=== PATIENT | female | born 1965 | race Caucasian/White ===

== ENCOUNTER 2017-10-16 09:37 | Inpatient (IN) | payer MEDICAID, MEDICARE ==
[~2017-10-16] VITALS: Ht 152.4 cm; Wt 63.9 kg
[2017-10-16 10:05] VITALS: BP 112/77
[2017-10-16] MEDS ORDERED: LORazepam 2 MG TABLET PO PRN (10:30)
[2017-10-16] MEDS ORDERED: ZOLPIDEM TARTRATE 10 MG TABLET PO PRN (10:30)
[2017-10-16] MEDS ORDERED: HALOPERIDOL 5 MG TABLET PO PRN (10:30)
[2017-10-16] MEDS ORDERED: INFLUENZA VIRUS VACCINE QVS 2017-18 (3YR+)/PF 60 MCG/0.5 ML SYRINGE IM ONE (12:15)
[2017-10-16 13:57] VITALS: BP 111/69
[2017-10-16] MEDS ORDERED: ACETAMINOPHEN 325 MG TABLET PO PRN (14:30)
[2017-10-16] MEDS ORDERED: IBUPROFEN 600 MG TABLET PO PRN (14:30)
[2017-10-16] MEDS ORDERED: MAGNESIUM CITRATE 300 ML ORAL SOLUTION PO PRN (15:00)
[2017-10-16] MEDS ORDERED: MAGNESIUM HYDROXIDE SUSPENSION 30 ML UDCUP PO PRN (15:00)
[2017-10-16] MEDS: DOCUSATE SODIUM 250 MG CAPSULE PO SCH (16:15)
[2017-10-16] MEDS: NYSTATIN 15 GM POWDER BOTTLE TP SCH (16:15)
[2017-10-16] MEDS: BACITRACIN 28.4 GM OINTMENT TP SCH (16:26)
[2017-10-16 16:34] VITALS: BP 103/64
[2017-10-17 00:44] VITALS: BP 102/59
[2017-10-17 08:20] LABS: BASOPHILS % (AUTO) 0.3 % (0.0-2.0); EOSINOPHILS % (AUTO) 3.2 % (1.0-6.0); HEMATOCRIT 36.3 % (36-46); HEMOGLOBIN 12.7 g/dL (12.0-16.0); LYMPHOCYTES # (AUTO) 1.5 K/uL (1.0-4.8); LYMPHOCYTES % (AUTO) 28.8 % (22.0-44.0); MEAN CORPUSCULAR HEMOGLOBIN 33.4 pg (26.0-34.0); MEAN CORPUSCULAR HGB CONC 35.1 G/dL (31.0-37.0); MEAN CORPUSCULAR VOLUME 95 fL (80-100); MONOCYTES # (AUTO) 0.3 K/uL (0.1-1.0); MONOCYTES % (AUTO) 5.7 % (2.0-9.0); NEUTROPHILS # (AUTO) 3.2 K/uL (1.8-7.7); PLATELET COUNT (AUTO) 308 K/uL (150-450); RED BLOOD CELL COUNT(AUTO) 3.81 MIL/uL (4.00-5.20); RED CELL DISTRIBUTION WIDTH 13.5 % (11.5-14.5)
[2017-10-17 08:29] LABS: HEMOGLOBIN A1C 4.6 % (4.5-6.2)
[2017-10-17 08:40] VITALS: BP 106/61
[2017-10-17 09:00] LABS: ALANINE AMINOTRANSFERASE 17 U/L (12-78); ALBUMIN 3.4 g/dL (3.4-5.0); ALKALINE PHOSPHATASE 78 U/L (46-116); ANION GAP 7 mmol/L (8-16); ASPARTATE AMINOTRANSFERASE 17 U/L (15-37); BILIRUBIN,TOTAL 0.3 mg/dL (0.1-1.0); CALCIUM, TOTAL 8.7 mg/dL (8.8-10.5); CARBON DIOXIDE 27 mmol/L (22-29); CHLORIDE 107 mmol/L (98-107); CHOL/HDL RATIO 3.2 (3.9-5.7); CHOLESTEROL 150 mg/dL (131-200); CREATININE 0.67 mg/dL (0.60-1.30); FREE T4 (FREE THYROXINE) 0.92 ng/dL (0.76-1.46); GLOMERULAR FILTR. RATE CALC > 60 mL/min (>60); GLUCOSE,RANDOM 90 mg/dL (70-110); HDL CHOLESTEROL 47 mg/dL (40-60); LDL CHOL (CALC.) 95 mg/dL (0-130); POTASSIUM 4.5 mmol/L (3.5-5.1); SODIUM SERUM 141 mmol/L (136-145); THYROID STIMULATING HORMONE 0.36 uIU/mL (0.36-3.74); TOTAL PROTEIN, SERUM 6.5 g/dL (6.4-8.2); TRIGLYCERIDES 40 mg/dL (15-150); UREA NITROGEN, BLOOD 17 mg/dL (7-18)
[2017-10-17] MEDS: NYSTATIN 15 GM POWDER BOTTLE TP SCH (09:21)
[2017-10-17] MEDS: BACITRACIN 28.4 GM OINTMENT TP SCH ×2 (09:21→16:13)
[2017-10-17] MEDS: DOCUSATE SODIUM 250 MG CAPSULE PO SCH (09:21)
[2017-10-17 09:45] LABS: AMPHET/METH SCREEN,URINE NEGATIVE (NEGATIVE); BARBITURATE SCREEN, URINE NEGATIVE (NEGATIVE); BENZODIAZEPINES SCREEN,URINE NEGATIVE (NEGATIVE); CANNABINOID SCREEN,URINE NEGATIVE (NEGATIVE); COCAINE SCREEN,URINE NEGATIVE (NEGATIVE); METHADONE SCREEN, URINE NEGATIVE (NEGATIVE); OPIATE SCREEN,URINE NEGATIVE (NEGATIVE)
[2017-10-17 09:46] LABS: PHENCYCLIDINE SCREEN,URINE NEGATIVE (NEGATIVE)
[2017-10-17] MEDS: OLANZapine 5 MG TABLET PO SCH (10:00)
[2017-10-17] MEDS: PARoxetine HCL 20 MG TABLET PO SCH (10:00)
[2017-10-17 10:09] LABS: BILIRUBIN,URINE NEGATIVE (NEGATIVE); GLUCOSE, URINE (UA) NEGATIVE (NEGATIVE); KETONES,URINE NEGATIVE (NEGATIVE); LEUKOCYTE ESTERASE ,URINE NEGATIVE (NEGATIVE); NITRATE,URINE NEGATIVE (NEGATIVE); OCCULT BLOOD,URINE NEGATIVE (NEGATIVE); PH,URINE 6.5 (5.0-8.0); PROTEIN,URINE NEGATIVE (NEGATIVE)
[2017-10-17 11:54] LABS: APPEARANCE,URINE CLEAR (CLEAR)
[2017-10-17 16:21] VITALS: BP 103/60
[2017-10-18 07:06] VITALS: BP 110/77
[2017-10-18 08:03] VITALS: BP 108/68
[2017-10-18] MEDS: PARoxetine HCL 20 MG TABLET PO SCH (09:01)
[2017-10-18] MEDS: DOCUSATE SODIUM 250 MG CAPSULE PO SCH (09:01)
[2017-10-18] MEDS: OLANZapine 5 MG TABLET PO SCH (09:01)
[2017-10-18] MEDS: NYSTATIN 15 GM POWDER BOTTLE TP SCH (09:02)
[2017-10-18] MEDS: BACITRACIN 28.4 GM OINTMENT TP SCH ×2 (09:02→16:14)
[2017-10-18 16:08] VITALS: BP 106/63
[2017-10-19 05:54] VITALS: BP 105/74
[2017-10-19] MEDS: DOCUSATE SODIUM 250 MG CAPSULE PO SCH (08:13)
[2017-10-19] MEDS: OLANZapine 5 MG TABLET PO SCH (08:14)
[2017-10-19] MEDS: NYSTATIN 15 GM POWDER BOTTLE TP SCH (08:14)
[2017-10-19] MEDS: PARoxetine HCL 20 MG TABLET PO SCH (08:14)
[2017-10-19] MEDS: BACITRACIN 28.4 GM OINTMENT TP SCH ×2 (08:14→16:26)
[2017-10-19 08:25] VITALS: BP 109/67
[2017-10-19 16:39] VITALS: BP 97/58
[2017-10-19 17:00] VITALS: BP 103/64
[2017-10-20 00:17] VITALS: BP 101/67
[2017-10-20 08:28] VITALS: BP 101/60
[2017-10-20] MEDS: PARoxetine HCL 20 MG TABLET PO SCH (08:58)
[2017-10-20] MEDS: OLANZapine 5 MG TABLET PO SCH (08:59)
[2017-10-20] MEDS: NYSTATIN 15 GM POWDER BOTTLE TP SCH (08:59)
[2017-10-20] MEDS: BACITRACIN 28.4 GM OINTMENT TP SCH ×2 (08:59→17:20)
[2017-10-20] MEDS: DOCUSATE SODIUM 250 MG CAPSULE PO SCH (08:59)
[2017-10-20 16:15] VITALS: BP 105/67
[2017-10-21 00:40] VITALS: BP 103/60
[2017-10-21 08:31] VITALS: BP 106/52
[2017-10-21] MEDS: BACITRACIN 28.4 GM OINTMENT TP SCH ×2 (09:48→16:57)
[2017-10-21] MEDS: DOCUSATE SODIUM 250 MG CAPSULE PO SCH (09:48)
[2017-10-21] MEDS: OLANZapine 5 MG TABLET PO SCH (09:48)
[2017-10-21] MEDS: PARoxetine HCL 20 MG TABLET PO SCH (09:48)
[2017-10-21] MEDS: NYSTATIN 15 GM POWDER BOTTLE TP SCH (09:48)
[2017-10-21 16:39] VITALS: BP 119/71
[2017-10-22 06:04] VITALS: BP 116/70
[2017-10-22 08:35] VITALS: BP 115/68
[2017-10-22] MEDS: NYSTATIN 15 GM POWDER BOTTLE TP SCH (08:38)
[2017-10-22] MEDS: OLANZapine 5 MG TABLET PO SCH (08:38)
[2017-10-22] MEDS: BACITRACIN 28.4 GM OINTMENT TP SCH ×2 (08:38→16:44)
[2017-10-22] MEDS: DOCUSATE SODIUM 250 MG CAPSULE PO SCH (08:38)
[2017-10-22] MEDS: PARoxetine HCL 20 MG TABLET PO SCH (08:38)
[2017-10-22 16:00] VITALS: BP 106/63
[2017-10-23 06:19] VITALS: BP 107/69
[2017-10-23 08:19] VITALS: BP 117/67
[2017-10-23] MEDS: DOCUSATE SODIUM 250 MG CAPSULE PO SCH (09:00)
[2017-10-23] MEDS: OLANZapine 5 MG TABLET PO SCH (09:00)
[2017-10-23] MEDS: PARoxetine HCL 20 MG TABLET PO SCH (09:00)
[2017-10-23] MEDS: NYSTATIN 15 GM POWDER BOTTLE TP SCH (09:01)
[2017-10-23] MEDS: BACITRACIN 28.4 GM OINTMENT TP SCH ×2 (09:01→16:33)
[2017-10-23 15:39] VITALS: BP 117/68
[2017-10-23 16:00] VITALS: BP 117/68
[2017-10-24 02:18] VITALS: BP 101/68
[2017-10-24 08:42] VITALS: BP 112/73
[2017-10-24] MEDS: PARoxetine HCL 20 MG TABLET PO SCH (09:06)
[2017-10-24] MEDS: BACITRACIN 28.4 GM OINTMENT TP SCH ×2 (09:07→16:04)
[2017-10-24] MEDS: NYSTATIN 15 GM POWDER BOTTLE TP SCH (09:07)
[2017-10-24] MEDS: DOCUSATE SODIUM 250 MG CAPSULE PO SCH (09:07)
[2017-10-24] MEDS: OLANZapine 5 MG TABLET PO SCH (09:07)
[2017-10-24] MEDS ORDERED: OLAN5TAB2 PO (09:44)
[2017-10-24] MEDS ORDERED: PARO20TA24 PO (09:44)
[2017-10-24] MEDS ORDERED: DOCU250C91 PO (09:45)
[2017-10-24 16:36] VITALS: BP 111/63
== END 2017-10-24 16:00 | disposition home or self-care (01) | DRG 750 ==
LOC: B2S 10:22
PROVIDERS: ADMIT Psychiatry & Neurology Child & Adolescent Psychiatry; ATTEND Psychiatry & Neurology Child & Adolescent Psychiatry
DX: F25.0 Schizoaffective disorder, bipolar type (principal); F29 Unspecified psychosis not due to a substance or known physiological condition; R45.851 Suicidal ideations; K59.00 Constipation, unspecified; S30.810A Abrasion of lower back and pelvis, initial encounter; X58.XXXA Exposure to other specified factors, initial encounter; Y93.89 Activity, other specified; Y92.89 Other specified places as the place of occurrence of the external cause; Y99.8 Other external cause status; Z28.21 Immunization not carried out because of patient refusal
CPT/HCPCS: 80307; 83036; 84439; 84443

== ENCOUNTER 2017-12-02 20:05 | Inpatient (IN) | payer MEDICAID ==
[~2017-12-02] VITALS: Ht 157.5 cm; Wt 67.1 kg
[~2017-12-02 20:05] MED LIST: DOCU250C91 PO; OLAN5TAB2 PO; PARO20TA24 PO
[2017-12-02] MEDS ORDERED: HALOPERIDOL 5 MG TABLET PO PRN (23:15)
[2017-12-02] MEDS ORDERED: LORazepam 2 MG TABLET PO PRN (23:15)
[2017-12-02 23:28] VITALS: BP 111/66
[2017-12-03 00:33] VITALS: BP 114/62
[2017-12-03] MEDS ORDERED: INFLUENZA VIRUS VACCINE QVS 2017-18 (3YR+)/PF 60 MCG/0.5 ML SYRINGE IM ONE (00:45)
[2017-12-03] MEDS ORDERED: PNEUMOCOCCAL VACCINE POLYVALENT 0.5 ML VIAL [PPSV23] IM ONE (00:45)
[2017-12-03 08:08] VITALS: BP 118/66
[2017-12-03] MEDS: PARoxetine HCL 20 MG TABLET PO SCH (08:21)
[2017-12-03 08:24] LABS: AMPHET/METH SCREEN,URINE NEGATIVE (NEGATIVE); BARBITURATE SCREEN, URINE NEGATIVE (NEGATIVE); BENZODIAZEPINES SCREEN,URINE NEGATIVE (NEGATIVE); CANNABINOID SCREEN,URINE NEGATIVE (NEGATIVE); COCAINE SCREEN,URINE NEGATIVE (NEGATIVE); METHADONE SCREEN, URINE NEGATIVE (NEGATIVE); OPIATE SCREEN,URINE NEGATIVE (NEGATIVE)
[2017-12-03 08:25] LABS: PHENCYCLIDINE SCREEN,URINE NEGATIVE (NEGATIVE)
[2017-12-03 08:47] LABS: APPEARANCE,URINE CLEAR (CLEAR); BILIRUBIN,URINE NEGATIVE (NEGATIVE); GLUCOSE, URINE (UA) NEGATIVE (NEGATIVE); KETONES,URINE NEGATIVE (NEGATIVE); LEUKOCYTE ESTERASE ,URINE SMALL (NEGATIVE); NITRATE,URINE NEGATIVE (NEGATIVE); OCCULT BLOOD,URINE NEGATIVE (NEGATIVE); PH,URINE 5.5 (5.0-8.0); PROTEIN,URINE NEGATIVE (NEGATIVE); UROBILINOGEN,URINE 0.2 mg/dL (<=1.0)
[2017-12-03] MEDS ORDERED: OLANZapine 5 MG TABLET PO SCH (09:00)
[2017-12-03 09:11] LABS: RBC,URINE 0-2 /HPF (0-2)
[2017-12-03 09:12] LABS: BACTERIA,URINE Rare /HPF (None Seen); SQUAMOUS EPITHELIAL CELL,UR Few /LPF (None Seen); WBC,URINE 26-50 /HPF (0-5)
[2017-12-03 09:13] LABS: RENAL EPITHELIAL CELLS,URINE Few /LPF (None Seen)
[2017-12-03 16:00] VITALS: BP 105/64
[2017-12-03] MEDS: OLANZapine 5 MG TABLET PO SCH (20:16)
[2017-12-04 07:08] VITALS: BP 121/74
[2017-12-04 08:08] VITALS: BP 104/65
[2017-12-04 08:20] LABS: BASOPHILS % (AUTO) 0.3 % (0.0-2.0); EOSINOPHILS % (AUTO) 4.6 % (1.0-6.0); HEMATOCRIT 40.8 % (36-46); LYMPHOCYTES # (AUTO) 1.6 K/uL (1.0-4.8); LYMPHOCYTES % (AUTO) 25.9 % (22.0-44.0); MEAN CORPUSCULAR HEMOGLOBIN 32.3 pg (26.0-34.0); MEAN CORPUSCULAR HGB CONC 34.4 G/dL (31.0-37.0); MEAN CORPUSCULAR VOLUME 94 fL (80-100); MONOCYTES # (AUTO) 0.4 K/uL (0.1-1.0); MONOCYTES % (AUTO) 7.3 % (2.0-9.0); NEUTROPHILS # (AUTO) 3.8 K/uL (1.8-7.7); NEUTROPHILS % (AUTO) 61.9 % (40.0-70.0); PLATELET COUNT (AUTO) 315 K/uL (150-450); RED BLOOD CELL COUNT(AUTO) 4.35 MIL/uL (4.00-5.20); RED CELL DISTRIBUTION WIDTH 14.1 % (11.5-14.5)
[2017-12-04] MEDS: PARoxetine HCL 20 MG TABLET PO SCH (08:22)
[2017-12-04 08:41] LABS: HEMOGLOBIN A1C 5.3 % (4.5-6.2)
[2017-12-04 09:40] LABS: ALANINE AMINOTRANSFERASE 24 U/L (12-78); ALBUMIN 3.4 g/dL (3.4-5.0); ALKALINE PHOSPHATASE 96 U/L (46-116); ANION GAP 11 mmol/L (8-16); ASPARTATE AMINOTRANSFERASE 20 U/L (15-37); BILIRUBIN,TOTAL 0.2 mg/dL (0.1-1.0); CALCIUM, TOTAL 8.9 mg/dL (8.8-10.5); CARBON DIOXIDE 23 mmol/L (22-29); CHLORIDE 105 mmol/L (98-107); CHOL/HDL RATIO 3.6 (3.9-5.7); CHOLESTEROL 177 mg/dL (131-200); CREATININE 0.62 mg/dL (0.60-1.30); FREE T4 (FREE THYROXINE) 0.88 ng/dL (0.76-1.46); GLOMERULAR FILTR. RATE CALC > 60 mL/min (>60); GLUCOSE,RANDOM 86 mg/dL (70-110); HDL CHOLESTEROL 49 mg/dL (40-60); LDL CHOL (CALC.) 112 mg/dL (0-130); POTASSIUM 4.1 mmol/L (3.5-5.1); SODIUM SERUM 139 mmol/L (136-145); THYROID STIMULATING HORMONE 0.67 uIU/mL (0.36-3.74); TOTAL PROTEIN, SERUM 7.2 g/dL (6.4-8.2); TRIGLYCERIDES 81 mg/dL (15-150); UREA NITROGEN, BLOOD 21 mg/dL (7-18)
[2017-12-04 16:07] VITALS: BP 108/71
[2017-12-04] MEDS: OLANZapine 5 MG TABLET PO SCH (20:10)
[2017-12-05 05:12] VITALS: BP 102/65
[2017-12-05 08:39] VITALS: BP 101/64
[2017-12-05] MEDS: PARoxetine HCL 20 MG TABLET PO SCH (08:44)
[2017-12-05] MEDS ORDERED: MAG HYDROX/AL HYDROX/SIMETH ES 30 ML SUSPENSION UDCUP PO PRN (14:30)
[2017-12-05 16:03] VITALS: BP 112/65
[2017-12-05] MEDS: OLANZapine 5 MG TABLET PO SCH (20:01)
[2017-12-06 06:22] VITALS: BP 110/68
[2017-12-06 08:22] VITALS: BP 100/60
[2017-12-06] MEDS: PARoxetine HCL 20 MG TABLET PO SCH (08:32)
[2017-12-06 16:06] VITALS: BP 101/67
[2017-12-06] MEDS: OLANZapine 10 MG TABLET PO SCH (20:05)
[2017-12-07 01:04] VITALS: BP 100/68
[2017-12-07 08:19] VITALS: BP 112/72
[2017-12-07] MEDS: PARoxetine HCL 20 MG TABLET PO SCH (08:23)
[2017-12-07 16:08] VITALS: BP 111/68
[2017-12-07] MEDS: OLANZapine 10 MG TABLET PO SCH (20:04)
[2017-12-08 01:19] VITALS: BP 110/62
[2017-12-08 08:11] VITALS: BP 100/60
[2017-12-08] MEDS: PARoxetine HCL 20 MG TABLET PO SCH (08:15)
[2017-12-08] MEDS: NITROFURANTOIN/NITROFURAN MAC 100 MG CAPSULE [MACROBID] PO SCH ×2 (08:15→16:12)
[2017-12-08 16:24] VITALS: BP 122/68
[2017-12-08] MEDS: OLANZapine 10 MG TABLET PO SCH (20:21)
[2017-12-08] MEDS: ZOLPIDEM TARTRATE 10 MG TABLET PO PRN (20:21)
[2017-12-09 01:00] VITALS: BP 122/67
[2017-12-09 08:20] VITALS: BP 100/66
[2017-12-09] MEDS: PARoxetine HCL 20 MG TABLET PO SCH (08:26)
[2017-12-09] MEDS: NITROFURANTOIN/NITROFURAN MAC 100 MG CAPSULE [MACROBID] PO SCH ×2 (08:26→16:30)
[2017-12-09 16:46] VITALS: BP 104/69
[2017-12-09] MEDS: OLANZapine 10 MG TABLET PO SCH (20:10)
[2017-12-09] MEDS: ZOLPIDEM TARTRATE 10 MG TABLET PO PRN (20:37)
[2017-12-10 05:56] VITALS: BP 120/81
[2017-12-10] MEDS: NITROFURANTOIN/NITROFURAN MAC 100 MG CAPSULE [MACROBID] PO SCH ×2 (08:57→16:14)
[2017-12-10] MEDS: PARoxetine HCL 20 MG TABLET PO SCH (08:59)
[2017-12-10 16:32] VITALS: BP 119/70
[2017-12-10] MEDS: OLANZapine 7.5 MG TABLET PO SCH (20:18)
[2017-12-10] MEDS: ZOLPIDEM TARTRATE 10 MG TABLET PO PRN (21:46)
[2017-12-11 01:12] VITALS: BP 102/65
[2017-12-11 08:29] VITALS: BP 101/67
[2017-12-11] MEDS: PARoxetine HCL 20 MG TABLET PO SCH (09:25)
[2017-12-11 16:06] VITALS: BP 115/67
[2017-12-11] MEDS: OLANZapine 7.5 MG TABLET PO SCH (20:17)
[2017-12-11] MEDS: ZOLPIDEM TARTRATE 10 MG TABLET PO PRN (20:27)
[2017-12-12 00:59] VITALS: BP 101/67
[2017-12-12 08:12] VITALS: BP 114/67
[2017-12-12] MEDS: PARoxetine HCL 20 MG TABLET PO SCH (08:56)
[2017-12-12 08:57] LABS: APPEARANCE,URINE CLEAR (CLEAR); BILIRUBIN,URINE NEGATIVE (NEGATIVE); GLUCOSE, URINE (UA) NEGATIVE (NEGATIVE); KETONES,URINE NEGATIVE (NEGATIVE); LEUKOCYTE ESTERASE ,URINE NEGATIVE (NEGATIVE); NITRATE,URINE NEGATIVE (NEGATIVE); OCCULT BLOOD,URINE NEGATIVE (NEGATIVE); PROTEIN,URINE NEGATIVE (NEGATIVE)
[2017-12-12] MEDS ORDERED: OLAN7.5T2 PO ×2 (12:19→12:22)
[2017-12-12] MEDS ORDERED: PARO20TA24 PO (12:19)
== END 2017-12-12 15:00 | disposition home or self-care (01) | DRG 750 ==
LOC: B2S 20:45 → EDSTATUS 23:44
PROC: 3E0234Z Introduction of Serum, Toxoid and Vaccine into Muscle, Percutaneous Approach (ICD-10-PCS; principal; 2017-12-03)
DX: F25.1 Schizoaffective disorder, depressive type (principal); R45.851 Suicidal ideations; F17.210 Nicotine dependence, cigarettes, uncomplicated; K59.00 Constipation, unspecified; Z79.899 Other long term (current) drug therapy; Z23 Encounter for immunization
CPT/HCPCS: 83036; 84439; 84443; 87086; 90471

== ENCOUNTER 2018-02-20 16:35 | Inpatient (IN) | payer MEDICAID ==
[~2018-02-20] VITALS: Ht 157.5 cm; Wt 68.0 kg
[~2018-02-20 16:35] MED LIST changes: -DOCU250C91 PO; -OLAN5TAB2 PO; +OLAN7.5T2 PO
[2018-02-20 21:16] VITALS: BP 120/89
[2018-02-20] MEDS ORDERED: ZOLPIDEM TARTRATE 10 MG TABLET PO PRN (21:30)
[2018-02-20] MEDS ORDERED: LORazepam 2 MG TABLET PO PRN (21:30)
[2018-02-20] MEDS ORDERED: HALOPERIDOL 5 MG TABLET PO PRN (21:30)
[2018-02-20 21:59] VITALS: BP 111/72
[2018-02-21 01:06] VITALS: BP 100/60
[2018-02-21 08:09] VITALS: BP 115/71
[2018-02-21] MEDS ORDERED: ACETAMINOPHEN 325 MG TABLET PO PRN (08:45)
[2018-02-21 08:54] LABS: BASOPHILS % (AUTO) 0.6 % (0.0-2.0); HEMATOCRIT 38.9 % (36-46); HEMOGLOBIN 13.4 g/dL (12.0-16.0); LYMPHOCYTES # (AUTO) 1.8 K/uL (1.0-4.8); LYMPHOCYTES % (AUTO) 37.1 % (22.0-44.0); MEAN CORPUSCULAR HEMOGLOBIN 31.9 pg (26.0-34.0); MEAN CORPUSCULAR HGB CONC 34.4 G/dL (31.0-37.0); MEAN CORPUSCULAR VOLUME 93 fL (80-100); MONOCYTES # (AUTO) 0.4 K/uL (0.1-1.0); MONOCYTES % (AUTO) 7.1 % (2.0-9.0); NEUTROPHILS # (AUTO) 2.6 K/uL (1.8-7.7); NEUTROPHILS % (AUTO) 52.2 % (40.0-70.0); PLATELET COUNT (AUTO) 295 K/uL (150-450); RED BLOOD CELL COUNT(AUTO) 4.19 MIL/uL (4.00-5.20); RED CELL DISTRIBUTION WIDTH 13.8 % (11.5-14.5)
[2018-02-21] MEDS: FLUOCINONIDE 0.05% TP SCH ×2 (09:00→16:58)
[2018-02-21 09:34] LABS: ALANINE AMINOTRANSFERASE 16 U/L (12-78); ALBUMIN 3.4 g/dL (3.4-5.0); ALKALINE PHOSPHATASE 73 U/L (46-116); ANION GAP 5 mmol/L (8-16); ASPARTATE AMINOTRANSFERASE 16 U/L (15-37); BILIRUBIN,TOTAL 0.3 mg/dL (0.1-1.0); CALCIUM, TOTAL 8.8 mg/dL (8.8-10.5); CARBON DIOXIDE 29 mmol/L (22-29); CHLORIDE 107 mmol/L (98-107); CHOL/HDL RATIO 2.7 (3.9-5.7); CHOLESTEROL 122 mg/dL (131-200); CREATININE 0.66 mg/dL (0.60-1.30); FREE T4 (FREE THYROXINE) 1.08 ng/dL (0.76-1.46); GLOMERULAR FILTR. RATE CALC > 60 mL/min (>60); GLUCOSE,RANDOM 86 mg/dL (70-110); HDL CHOLESTEROL 45 mg/dL (40-60); LDL CHOL (CALC.) 68 mg/dL (0-130); POTASSIUM 4.1 mmol/L (3.5-5.1); SODIUM SERUM 141 mmol/L (136-145); THYROID STIMULATING HORMONE 1.05 uIU/mL (0.36-3.74); TOTAL PROTEIN, SERUM 6.9 g/dL (6.4-8.2); TRIGLYCERIDES 47 mg/dL (15-150); UREA NITROGEN, BLOOD 11 mg/dL (7-18)
[2018-02-21] MEDS: IBUPROFEN 400 MG TABLET PO PRN (09:49)
[2018-02-21] MEDS: ARIPiprazole 10 MG TABLET PO SCH (13:14)
[2018-02-21 16:00] VITALS: BP 100/60
[2018-02-22] VITALS: BP 102/61
[2018-02-22] MEDS: FLUOCINONIDE 0.05% TP SCH ×2 (08:04→16:56)
[2018-02-22] MEDS: ARIPiprazole 10 MG TABLET PO SCH (08:04)
[2018-02-22] MEDS ORDERED: DOCUSATE SODIUM 100 MG CAPSULE PO PRN (08:30)
[2018-02-22 08:43] LABS: THYROID STIMULATING HORMONE 0.49 uIU/mL (0.36-3.74)
[2018-02-22 10:51] VITALS: BP 94/56
[2018-02-22 16:00] VITALS: BP 106/64
[2018-02-23 02:16] VITALS: BP 106/64
[2018-02-23] MEDS: FLUOCINONIDE 0.05% TP SCH ×2 (08:15→16:45)
[2018-02-23] MEDS: ARIPiprazole 10 MG TABLET PO SCH (08:15)
[2018-02-23 08:48] VITALS: BP 108/72
[2018-02-23 16:39] VITALS: BP 114/80
[2018-02-24 06:28] VITALS: BP 109/76
[2018-02-24 08:29] VITALS: BP 112/73
[2018-02-24] MEDS: ARIPiprazole 10 MG TABLET PO SCH (08:32)
[2018-02-24] MEDS: FLUOCINONIDE 0.05% TP SCH ×2 (08:33→17:05)
[2018-02-24 16:16] VITALS: BP 113/71
[2018-02-24] MEDS: IBUPROFEN 400 MG TABLET PO PRN (18:56)
[2018-02-25 05:33] VITALS: BP 120/63
[2018-02-25 08:02] VITALS: BP 108/62
[2018-02-25] MEDS: FLUOCINONIDE 0.05% TP SCH ×2 (08:15→16:04)
[2018-02-25] MEDS: ARIPiprazole 10 MG TABLET PO SCH (08:15)
[2018-02-25 16:04] VITALS: BP 101/62
[2018-02-26 06:13] VITALS: BP 110/54
[2018-02-26 08:02] VITALS: BP 106/62
[2018-02-26] MEDS: FLUOCINONIDE 0.05% TP SCH ×2 (08:45→17:20)
[2018-02-26] MEDS: ARIPiprazole 10 MG TABLET PO SCH (08:45)
[2018-02-26 16:19] VITALS: BP 104/65
[2018-02-27 06:09] VITALS: BP 113/60
[2018-02-27 08:19] VITALS: BP 114/65
[2018-02-27] MEDS: ARIPiprazole 10 MG TABLET PO SCH (08:37)
[2018-02-27] MEDS: FLUOCINONIDE 0.05% TP SCH ×2 (08:37→16:19)
[2018-02-27 16:13] VITALS: BP 105/73
[2018-02-28 07:06] VITALS: BP 115/73
[2018-02-28] MEDS: FLUOCINONIDE 0.05% TP SCH (08:27)
[2018-02-28] MEDS: ARIPiprazole 10 MG TABLET PO SCH (08:27)
[2018-02-28 08:38] VITALS: BP 100/64
[2018-02-28] MEDS ORDERED: ARIP10TA8 PO (10:01)
== END 2018-02-28 14:30 | disposition home or self-care (01) | DRG 750 ==
LOC: B2S 21:24
PROVIDERS: ADMIT Psychiatry & Neurology Psychiatry; ATTEND Psychiatry & Neurology Psychiatry
DX: F25.1 Schizoaffective disorder, depressive type (principal); Z59.0 Homelessness; F41.9 Anxiety disorder, unspecified; K59.00 Constipation, unspecified; G47.00 Insomnia, unspecified; Z79.899 Other long term (current) drug therapy
CPT/HCPCS: 83036; 84439; 84443

== ENCOUNTER 2018-03-26 18:40 | Inpatient (IN) | payer MEDICAID ==
[~2018-03-26] VITALS: Ht 160 cm; Wt 65.3 kg
[~2018-03-26 18:40] MED LIST changes: +ARIP10TA8 PO; -OLAN7.5T2 PO; -PARO20TA24 PO
[2018-03-26] MEDS ORDERED: HALOPERIDOL 5 MG TABLET PO PRN (19:00)
[2018-03-26] MEDS ORDERED: LORazepam 2 MG TABLET PO PRN (19:00)
[2018-03-26] MEDS ORDERED: ZOLPIDEM TARTRATE 10 MG TABLET PO PRN (19:00)
[2018-03-26 19:13] VITALS: BP 124/78
[2018-03-26] MEDS ORDERED: IBUPROFEN 400 MG TABLET PO PRN (20:15)
[2018-03-27 05:50] VITALS: BP 100/69
[2018-03-27 08:10] VITALS: BP 105/60
[2018-03-27 08:50] LABS: BASOPHILS % (AUTO) 0.6 % (0.0-2.0); EOSINOPHILS % (AUTO) 3.2 % (1.0-6.0); HEMOGLOBIN 13.9 g/dL (12.0-16.0); LYMPHOCYTES # (AUTO) 1.9 K/uL (1.0-4.8); LYMPHOCYTES % (AUTO) 36.6 % (22.0-44.0); MEAN CORPUSCULAR HGB CONC 35.5 G/dL (31.0-37.0); MEAN CORPUSCULAR VOLUME 93 fL (80-100); MONOCYTES # (AUTO) 0.3 K/uL (0.1-1.0); MONOCYTES % (AUTO) 6.2 % (2.0-9.0); NEUTROPHILS # (AUTO) 2.7 K/uL (1.8-7.7); NEUTROPHILS % (AUTO) 53.4 % (40.0-70.0); PLATELET COUNT (AUTO) 342 K/uL (150-450); RED CELL DISTRIBUTION WIDTH 13.8 % (11.5-14.5)
[2018-03-27 09:28] LABS: ALANINE AMINOTRANSFERASE 19 U/L (12-78); ALBUMIN 3.5 g/dL (3.4-5.0); ALKALINE PHOSPHATASE 77 U/L (46-116); ANION GAP 7 mmol/L (8-16); ASPARTATE AMINOTRANSFERASE 22 U/L (15-37); BILIRUBIN,TOTAL 0.4 mg/dL (0.1-1.0); CALCIUM, TOTAL 8.7 mg/dL (8.8-10.5); CARBON DIOXIDE 28 mmol/L (22-29); CHLORIDE 106 mmol/L (98-107); CHOL/HDL RATIO 3.2 (3.9-5.7); CHOLESTEROL 159 mg/dL (131-200); CREATININE 0.65 mg/dL (0.60-1.30); FREE T4 (FREE THYROXINE) 0.96 ng/dL (0.76-1.46); GLOMERULAR FILTR. RATE CALC > 60 mL/min (>60); GLUCOSE,RANDOM 80 mg/dL (70-110); HDL CHOLESTEROL 50 mg/dL (40-60); LDL CHOL (CALC.) 99 mg/dL (0-130); POTASSIUM 4.1 mmol/L (3.5-5.1); SODIUM SERUM 141 mmol/L (136-145); TOTAL PROTEIN, SERUM 7.5 g/dL (6.4-8.2); TRIGLYCERIDES 49 mg/dL (15-150); UREA NITROGEN, BLOOD 11 mg/dL (7-18)
[2018-03-27 09:36] LABS: HEMOGLOBIN A1C 5.6 % (4.5-6.2)
[2018-03-27] MEDS: ARIPiprazole 10 MG TABLET PO SCH (11:30)
[2018-03-27] MEDS: MAG HYDROX/AL HYDROX/SIMETH 30 ML SUSP UDCUP PO PRN (13:22)
[2018-03-27 16:15] VITALS: BP 110/62
[2018-03-27] MEDS ORDERED: IBUPROFEN 400 MG TABLET PO PRN (21:30)
[2018-03-27] MEDS ORDERED: ACETAMINOPHEN 325 MG TABLET PO PRN (21:30)
[2018-03-28 00:18] VITALS: BP 105/76
[2018-03-28 07:44] LABS: HEMOGLOBIN A1C 5.6 % (4.5-6.2)
[2018-03-28 08:20] VITALS: BP 114/73
[2018-03-28] MEDS: ARIPiprazole 10 MG TABLET PO SCH (08:21)
[2018-03-28 08:25] LABS: CHOL/HDL RATIO 3.5 (3.9-5.7); THYROID STIMULATING HORMONE 1.18 uIU/mL (0.36-3.74)
[2018-03-28] MEDS ORDERED: DOCUSATE SODIUM 100 MG CAPSULE PO PRN (10:45)
[2018-03-28] MEDS ORDERED: TUBERCULIN, PURIFIED PROTEIN DERIVATIVE 5 TU/0.1 ML SYG ID ONE (11:15)
[2018-03-28] MEDS: MAG HYDROX/AL HYDROX/SIMETH 30 ML SUSP UDCUP PO PRN (14:15)
[2018-03-28 16:37] VITALS: BP 120/81
[2018-03-29 04:43] VITALS: BP 101/76
[2018-03-29 08:15] VITALS: BP 107/67
[2018-03-29] MEDS: ARIPiprazole 10 MG TABLET PO SCH (08:56)
[2018-03-29 16:15] VITALS: BP 100/63
[2018-03-30 06:35] VITALS: BP 100/62
[2018-03-30 08:00] VITALS: BP 101/60
[2018-03-30] MEDS: ARIPiprazole 10 MG TABLET PO SCH (08:57)
[2018-03-30 16:15] VITALS: BP 106/79
[2018-03-31 06:14] VITALS: BP 110/68
[2018-03-31 08:03] VITALS: BP 110/63
[2018-03-31] MEDS: ARIPiprazole 15 MG TABLET PO SCH (08:03)
[2018-03-31] MEDS: MAG HYDROX/AL HYDROX/SIMETH 30 ML SUSP UDCUP PO PRN (12:30)
[2018-03-31 16:06] VITALS: BP 112/70
[2018-04-01 01:00] VITALS: BP 107/64
[2018-04-01] MEDS: ARIPiprazole 15 MG TABLET PO SCH (08:02)
[2018-04-01 08:15] VITALS: BP 103/67
[2018-04-01] MEDS: MAG HYDROX/AL HYDROX/SIMETH 30 ML SUSP UDCUP PO PRN (13:48)
[2018-04-01 16:04] VITALS: BP 109/68
[2018-04-01] MEDS: OXcarbazepine 300 MG TABLET PO SCH (16:04)
[2018-04-02 00:22] VITALS: BP 116/65
[2018-04-02] MEDS: ARIPiprazole 15 MG TABLET PO SCH (08:01)
[2018-04-02] MEDS: OXcarbazepine 300 MG TABLET PO SCH ×2 (08:01→16:18)
[2018-04-02 08:24] VITALS: BP 109/69
[2018-04-02 18:20] VITALS: BP 105/65
[2018-04-03 06:22] VITALS: BP 110/68
[2018-04-03 08:16] VITALS: BP 101/65
[2018-04-03] MEDS: OXcarbazepine 300 MG TABLET PO SCH (08:34)
[2018-04-03] MEDS: ARIPiprazole 15 MG TABLET PO SCH (08:34)
[2018-04-03] MEDS ORDERED: OXCA300T PO (13:04)
== END 2018-04-03 15:44 | disposition home or self-care (01) | DRG 750 ==
LOC: B2S 18:54
PROVIDERS: ADMIT Psychiatry & Neurology Psychiatry; ATTEND Psychiatry & Neurology Psychiatry
DX: F25.1 Schizoaffective disorder, depressive type (principal); R45.851 Suicidal ideations; F10.10 Alcohol abuse, uncomplicated; K59.09 Other constipation; G47.00 Insomnia, unspecified; F19.10 Other psychoactive substance abuse, uncomplicated; Z91.5 Personal history of self-harm; Z71.41 Alcohol abuse counseling and surveillance of alcoholic; Z71.51 Drug abuse counseling and surveillance of drug abuser
CPT/HCPCS: 71046; 83036; 84439; 84443; 87081

== ENCOUNTER 2021-03-05 11:03 | Emergency (ER) | payer MEDICAID ==
[~2021-03-05] VITALS: Ht 157.5 cm; Wt 61.4 kg
[~2021-03-05 11:03] MED LIST changes: +ARIP10TA38 PO; -ARIP10TA8 PO; +OXCA300T57 PO
[2021-03-05] MEDS ORDERED: PERMETHRIN 1% 60 ML LOTION TP ONE (11:45)
[2021-03-05] MEDS ORDERED: PERMETHRIN 5% 60 GM CREAM TP ONE (11:45)
[2021-03-05 14:57] VITALS: BP 125/58
== END 2021-03-05 15:25 | disposition home or self-care (01) ==
LOC: EMS 11:03
DX: S00.11XA Contusion of right eyelid and periocular area, initial encounter (principal); S40.022A Contusion of left upper arm, initial encounter; B85.2 Pediculosis, unspecified; F17.200 Nicotine dependence, unspecified, uncomplicated; Y04.2XXA Assault by strike against or bumped into by another person, initial encounter; Y93.89 Activity, other specified; Y92.89 Other specified places as the place of occurrence of the external cause; Y99.8 Other external cause status
CPT/HCPCS: 70450; 99284

== ENCOUNTER 2023-06-01 19:41 | Emergency (ER) | payer MEDICAID, OTHER ==
[~2023-06-01] VITALS: Ht 160 cm; Wt 63.6 kg
[~2023-06-01 19:41] MED LIST changes: -OXCA300T57 PO; +OXCA300T70 PO
[2023-06-01 19:54] VITALS: BP 102/55; PULSE 67; RESP 20; TEMP 98.2
== END 2023-06-01 22:21 | disposition left against medical advice (07) ==
LOC: EMS 19:42
DX: R07.89 Other chest pain (principal)
CPT/HCPCS: 71045; 93005; 99283

== ENCOUNTER 2024-02-13 08:26 | Emergency (ER) | payer OTHER ==
[~2024-02-13] VITALS: Ht 152.4 cm; Wt 54.5 kg
[2024-02-13] MEDS: DiphenhydrAMINE HCL 50 MG/ML VIAL IM ONE (10:43)
[2024-02-13 10:47] VITALS: BP 122/59; PULSE 72; RESP 16; TEMP 97.9
[2024-02-13] MEDS ORDERED: DIPH-1243 PO (11:09)
[2024-02-13] MEDS ORDERED: PRED-554 PO (11:32)
== END 2024-02-13 11:40 | disposition home or self-care (01) ==
LOC: EMS 08:35
DX: L29.2 Pruritus vulvae (principal)
CPT/HCPCS: 99283; 96372; J1200